=== PATIENT | male | born 1990 | race Caucasian/White ===

== ENCOUNTER 2020-09-27 19:55 | Emergency (ER) | payer OTHER ==
[~2020-09-27] VITALS: Ht 195.6 cm; Wt 102.1 kg
[2020-09-27 20:36] VITALS: Ht 195.6 cm; Wt 102.1 kg
[2020-09-27 21:33] VITALS: BP 110/75
== END 2020-09-27 21:33 | disposition home or self-care (01) ==
LOC: ED 19:55
DX: S16.1XXA Strain of muscle, fascia and tendon at neck level, initial encounter (principal); M25.80 Other specified joint disorders, unspecified joint; V49.9XXA Car occupant (driver) (passenger) injured in unspecified traffic accident, initial encounter; Y93.89 Activity, other specified; Y92.89 Other specified places as the place of occurrence of the external cause; Y99.8 Other external cause status